=== PATIENT | female | born 1945 | race Caucasian/White ===

== ENCOUNTER 2021-08-06 17:43 | Observation (INO) | payer MEDICARE ==
[~2021-08-06] VITALS: Ht 172.7 cm; Wt 97.5 kg
[2021-08-06 17:50] VITALS: BP 121/70
[2021-08-06] MEDS ORDERED: LISINOPRIL-HCT1 EAC1 PO (17:57)
[2021-08-06] MEDS ORDERED: ZOCOR20 MG PO (17:57)
[2021-08-06] MEDS ORDERED: CELEXA20 MG PO (17:58)
[2021-08-06] MEDS ORDERED: ZOLPIDEM TARTRA10 MG PO (17:58)
[2021-08-06 18:21] LABS: ABSOLUTE BASOPHILS 0.1 thou/uL (0.0-0.2); ABSOLUTE EOSINOPHILS 0.1 thou/uL (0.0-0.7); ABSOLUTE LYMPHOCYTES 1.9 thou/uL (0.8-5.3); ABSOLUTE MONOCYTES 0.5 thou/uL (0.0-1.2); ABSOLUTE NEUTROPHILS 3.9 thou/uL (1.6-8.1); BASOPHILS 1.1 %; EOSINOPHILS 0.9 %; HEMATOCRIT 35.3 % (37.0-47.0); HEMOGLOBIN 12.2 gm/dL (12.0-15.0); LYMPHOCYTES 30.2 %; MCH 28.5 pg (26.0-34.0); MCHC 34.5 g/dL (28.0-37.0); MCV 82.5 fL (80.0-100.0); MONOCYTES 7.2 %; MPV 8.3 fl. (7.2-11.1); NUCLEATED RBCS 0 /100WBC; PLATELET COUNT* 189 thou/uL (150-400); POLYS 60.6 %; RBC 4.28 mil/uL (4.20-5.00); RDW-CV 14.1 % (10.5-14.5); WBC 6.4 thou/uL (4.0-11.0)
[2021-08-06 18:35] LABS: ALBUMIN 4.1 g/dL (3.4-5.0); CALCIUM 9.3 mg/dL (8.5-10.1); CREATININE 2.4 mg/dL (0.6-1.3); POTASSIUM 3.6 mmol/L (3.5-5.1); TOTAL BILIRUBIN 0.5 mg/dL (<0.1-1.0); TOTAL PROTEIN 7.3 g/dL (6.4-8.2)
[2021-08-06 22:36] LABS: URINE BILIRUBIN NEGATIVE (Negative); URINE BLOOD NEGATIVE (Negative); URINE CLARITY CLEAR; URINE COLOR YELLOW; URINE GLUCOSE-RANDOM NEGATIVE (Negative); URINE KETONES NEGATIVE (Negative); URINE LEUKOCYTES-REFLEX NEGATIVE (Negative); URINE NITRITE-REFLEX NEGATIVE (Negative); URINE PROTEIN NEGATIVE (Negative); URINE SPECIFIC GRAVITY 1.015 (1.005-1.030); URINE UROBILINOGEN 0.2 E.U./dl (0.2-1.0)
[2021-08-06 22:45] VITALS: BP 119/51
[2021-08-06 22:54] VITALS: BP 171/67
[2021-08-07 04:50] VITALS: BP 128/54
--- NOTE | 2021-08-07 06:28 | NUR ---
PT ARRIVED TO THE UNIT AT 2250. A&O X 4. ON RA. UP AD KAYLENE. IVF INFUISING ORDERED. NO C/O PAIN. CALL LIGHT WITHIN REACH. WILL CONTINUE TO MONITOR.
[2021-08-07 08:32] LABS: HEMATOCRIT 35.3 % (37.0-47.0); HEMOGLOBIN 12.1 gm/dL (12.0-15.0); MCH 28.2 pg (26.0-34.0); MCHC 34.2 g/dL (28.0-37.0); MCV 82.4 fL (80.0-100.0); MPV 8.7 fl. (7.2-11.1); RBC 4.28 mil/uL (4.20-5.00); RDW-CV 13.8 % (10.5-14.5); WBC 6.2 thou/uL (4.0-11.0)
[2021-08-07 09:21] LABS: CALCIUM 8.8 mg/dL (8.5-10.1); CREATININE 1.6 mg/dL (0.6-1.3); POTASSIUM 3.7 mmol/L (3.5-5.1)
[2021-08-07 09:30] VITALS: BP 127/59
--- NOTE | 2021-08-07 10:07 | NUR ---
CM COMPLETED AN ASSESSMENT WITH PT WHO INDICATED SHE LIVES ALONE IN [facility] AND HAS 10 STAIRS TO BEDROOM. PT DENIES HX WITH HH OR SNF. PT HAS NO DMES. PT IS INDEPENDENT ADLS. CHILDREN ARE SUPPORTIVE. PT HAS NO ANTICIPATED D/C NEEDS AT THIS TIME.
[2021-08-07 17:01] VITALS: BP 149/68
--- NOTE | 2021-08-07 19:02 | NUR ---
1800- END OF SHIFT- PATIENT ALERT AND ORIENTED X3. OBTIANED STOOLS SAMPLE AND SENT TO LAB ORDERED. HAD ONE EPISODE OF NAUSEA WITH VOMITTING OF "FOAM CONSISTANT" EMESIS. ZOFRAN GIVEN WITH GOOD RESULTS. IV FLUIDS CONTINUE TO INFUSE ORDERED. CONSUMED ONLY I PACKAGE OF CRACKERS FOR THE DAY.
[2021-08-07 19:40] VITALS: BP 161/72
[2021-08-08 00:18] VITALS: BP 130/57
--- NOTE | 2021-08-08 04:48 | NUR ---
PT A&O X 4. ON RA. UP INDEPENDENTLY IN ROOM. NO C/O PAIN OR N/V. IVF INFUISING ORDERED. BENADRYL GIVEN PER PT REQUEST. CALL LIGHT WITHIN REACH. WILL CONTINUE TO MONITOR.
[2021-08-08 07:56] VITALS: BP 143/68
[2021-08-08 10:03] VITALS: BP 143/68
[2021-08-08 10:27] VITALS: BP 143/68
--- NOTE | 2021-08-08 11:13 | NUR ---
PT DISCHARGED HOME. COPY OF DISCHARGE PAPERWORK TO PT WITH EXPLANIATION. PT VERBALIZED UNDERSTANDING. NO PRESCRIPTIONS ORDERED. PT TAKEN TO HER VEHICHLE PER WHEELCHAIR.
[2021-08-08 11:15] VITALS: BP 143/68
== END 2021-08-08 11:17 | disposition home or self-care (01) ==
LOC: M.ERS 17:43 → M.TBA-ER 19:06 → M.2W 22:53
PROVIDERS: Family Medicine; Physician Assistant; ADMIT Internal Medicine; ATTEND Internal Medicine
DX: N17.9 Acute kidney failure, unspecified (principal); E86.0 Dehydration; Z20.822 Contact with and (suspected) exposure to COVID-19; R19.7 Diarrhea, unspecified; E87.1 Hypo-osmolality and hyponatremia; I10 Essential (primary) hypertension; Z79.899 Other long term (current) drug therapy